=== PATIENT | male | born 1975 | race African-American/Black ===

== ENCOUNTER 2016-08-16 19:07 | Emergency (ER) | payer OTHER ==
[~2016-08-16] VITALS: Ht 172.7 cm; Wt 98.5 kg
[~2016-08-16 19:07] MED LIST: PREDNISONE20 MG PO; RISPERIDONE2 MG PO; ULTRAM50 MG PO; ZYPREXA10 MG PO
[2016-08-16 20:35] LABS: EOSINOPHIL (%) 0.4 % (0-5); HEMATOCRIT 40.4 % (38.0-50.0); IMMATURE GRANULOCYTE (%) 0.5 % (0.0-0.7); INSTRUMENT ABS NEUTROPHIL CT 5.5 K/uL; MCHC 34.2 G/DL (30.0-36.0); MCV 90.8 FL (86-99); MEAN PLAT.VOLUME 10.5 uM^3 (9.0-12.4); MONOCYTE (%) 6.5 % (3-12); MONOCYTE COUNT 0.5 K/uL (0-0.8); NEUTROPHIL (%) 67.5 % (45-76); NEUTROPHIL COUNT 5.5 K/uL (1.8-6.4); PLATELET COUNT 245 K/uL (156-360); RBC DIS.WIDTH-SD 43.2 % (39-53); RED BLOOD COUNT 4.45 M/uL (4.00-5.50); WHITE BLOOD COUNT 8.1 K/uL (4.1-10.2)
[2016-08-16 20:36] LABS: CHLORIDE 111 mEq/L (99-109); POTASSIUM 3.7 mEq/L (3.7-5.4); SODIUM 143 mEq/L (136-147)
[2016-08-16 20:39] LABS: GLUCOSE 104 mg/dL (70-99)
[2016-08-16 20:40] LABS: ANION GAP 10 MEQ/L (2-14)
[2016-08-16 20:41] LABS: TOTAL BILIRUBIN 0.3 mg/dL (0.0-1.0)
[2016-08-16 20:42] LABS: ALKALINE PHOSPHATASE 77 IU/L (3-129); GFR ESTIMATE (CALCULATED) > 59 mL/min/; SERUM ETHYL ALCOHOL 157 mg/dL
[2016-08-16 20:44] LABS: UREA NITROGEN (BUN) 17 mg/dL (9-23)
[2016-08-16 20:45] LABS: CREATINE KINASE 254 IU/L (1-294); TOTAL CK 254 IU/L (1-294)
[2016-08-16 20:54] LABS: CK-MB 1.3 ng/mL (0.0-4.9)
[2016-08-16 21:11] LABS: AMPHETAMINE NEGATIVE (500 ng/mL); BARBITURATES NEGATIVE (200 ng/mL); BENZODIAZEPINES NEGATIVE (150 ng/mL); COCAINE NEGATIVE (150 ng/mL); INTERNAL CONTROLS VALID? YES; METHADONE NEGATIVE (200 ng/mL); METHAMPHETAMINE NEGATIVE (500 ng/mL); OPIATES (MORPHINE) NEGATIVE (100 ng/mL); OXYCODONE NEGATIVE (100 ng/mL); PHENCYCLIDINE NEGATIVE (25 ng/mL); PROPOXYPHENE NEGATIVE (300 ng/mL); THC CANNABINOIDS NEGATIVE (50 ng/mL); TRICYCLIC ANTIDEPRESSANTS NEGATIVE (300 ng/mL)
[2016-08-16 21:35] VITALS: BP 111/68
== END 2016-08-16 21:36 | disposition home or self-care (01) ==
LOC: EME → EDBD 19:07 → EME 19:07
PROVIDERS: Emergency Medicine
DX: F10.129 Alcohol abuse with intoxication, unspecified (principal); F16.10 Hallucinogen abuse, uncomplicated; F17.200 Nicotine dependence, unspecified, uncomplicated; F20.9 Schizophrenia, unspecified
CPT/HCPCS: 80053; 82550; 82553; 85025; 99281; 99285; G0480; J7030

== ENCOUNTER 2016-08-18 10:08 | Inpatient (IN) | payer OTHER ==
[~2016-08-18] VITALS: Ht 172.7 cm; Wt 97.7 kg
[2016-08-18 10:42] LABS: HEMATOCRIT 45.1 % (38.0-50.0); MCHC 34.1 G/DL (30.0-36.0); MCV 90.7 FL (86-99); MEAN PLAT.VOLUME 10.6 uM^3 (9.0-12.4); PLATELET COUNT 251 K/uL (156-360); RBC DIS.WIDTH-CV 13.1 % (11.8-14.6); RBC DIS.WIDTH-SD 43.6 % (39-53); RED BLOOD COUNT 4.97 M/uL (4.00-5.50); WHITE BLOOD COUNT 9.7 K/uL (4.1-10.2)
[2016-08-18 10:53] LABS: CHLORIDE 106 mEq/L (99-109); POTASSIUM 3.6 mEq/L (3.7-5.4); SODIUM 140 mEq/L (136-147)
[2016-08-18 10:56] LABS: ANION GAP 12 MEQ/L (2-14)
[2016-08-18 10:58] LABS: SERUM ETHYL ALCOHOL < 10 mg/dL
[2016-08-18 10:59] LABS: GFR ESTIMATE (CALCULATED) > 59 mL/min/
[2016-08-18 11:00] LABS: UREA NITROGEN (BUN) 16 mg/dL (9-23)
[2016-08-18 11:03] LABS: GLUCOSE 204 mg/dL (70-99)
[2016-08-18 11:47] LABS: AMPHETAMINE NEGATIVE (500 ng/mL); BARBITURATES NEGATIVE (200 ng/mL); BENZODIAZEPINES NEGATIVE (150 ng/mL); COCAINE NEGATIVE (150 ng/mL); METHADONE NEGATIVE (200 ng/mL); METHAMPHETAMINE NEGATIVE (500 ng/mL); OPIATES (MORPHINE) NEGATIVE (100 ng/mL); OXYCODONE NEGATIVE (100 ng/mL); PHENCYCLIDINE NEGATIVE (25 ng/mL); THC CANNABINOIDS NEGATIVE (50 ng/mL); TRICYCLIC ANTIDEPRESSANTS NEGATIVE (300 ng/mL)
[2016-08-18 11:48] LABS: INTERNAL CONTROLS VALID? YES; PROPOXYPHENE NEGATIVE (300 ng/mL)
[2016-08-18] MEDS ORDERED: CITALOPRAM HBR10 MG PO (12:21)
[2016-08-18] MEDS ORDERED: CITALOPRAM HBR20 MG PO (12:21)
[2016-08-18] MEDS ORDERED: RISPERIDONE1 MG PO (12:22)
[2016-08-18 14:45] VITALS: BP 130/80
[2016-08-18 14:46] VITALS: BP 130/80
[2016-08-19 08:41] VITALS: BP 128/76
[2016-08-19 15:49] VITALS: BP 138/72
[2016-08-20 08:02] VITALS: BP 133/79
== END 2016-08-20 12:20 | disposition home or self-care (01) | DRG 885 ==
LOC: EME 10:08 → EDOF 13:23 → 1WEST 13:23
DX: F20.9 Schizophrenia, unspecified (principal); R45.851 Suicidal ideations; Z56.0 Unemployment, unspecified; F16.90 Hallucinogen use, unspecified, uncomplicated; F10.10 Alcohol abuse, uncomplicated; F12.10 Cannabis abuse, uncomplicated
CPT/HCPCS: 80048; 85027; 90839; 97150 GO; 97165 GO; 99281; 99285; G0480; Q0177

== ENCOUNTER 2016-10-13 17:11 | Emergency (ER) | payer OTHER ==
[~2016-10-13] VITALS: Ht 172.7 cm; Wt 93.3 kg
[~2016-10-13 17:11] MED LIST changes: +CITALOPRAM HBR10 MG PO; +CITALOPRAM HBR20 MG PO; +RISPERIDONE1 MG PO
[2016-10-13 17:47] LABS: EOSINOPHIL (%) 1.7 % (0-5); EOSINOPHIL COUNT 0.1 K/uL (0-0.3); HEMATOCRIT 42.7 % (38.0-50.0); IMMATURE GRANULOCYTE (%) 0.6 % (0.0-0.7); LYMPHOCYTE COUNT 2.3 K/uL (1.0-2.8); MCH 31.4 PG (29.0-34.0); MCHC 34.4 G/DL (30.0-36.0); MCV 91.2 FL (86-99); MEAN PLAT.VOLUME 10.5 uM^3 (9.0-12.4); MONOCYTE (%) 8.1 % (3-12); MONOCYTE COUNT 0.6 K/uL (0-0.8); NEUTROPHIL (%) 56.4 % (45-76); PLATELET COUNT 234 K/uL (156-360); RBC DIS.WIDTH-CV 13.5 % (11.8-14.6); RBC DIS.WIDTH-SD 45.4 % (39-53); RED BLOOD COUNT 4.68 M/uL (4.00-5.50); WHITE BLOOD COUNT 7.1 K/uL (4.1-10.2)
[2016-10-13 18:05] LABS: CHLORIDE 107 mEq/L (99-109); POTASSIUM 4.1 mEq/L (3.7-5.4); SODIUM 140 mEq/L (136-147)
[2016-10-13 18:08] LABS: GLUCOSE 136 mg/dL (70-99)
[2016-10-13 18:09] LABS: ANION GAP 11 MEQ/L (2-14)
[2016-10-13 18:10] LABS: TOTAL BILIRUBIN 0.5 mg/dL (0.0-1.0)
[2016-10-13 18:11] LABS: ALKALINE PHOSPHATASE 70 IU/L (3-129); GFR ESTIMATE (CALCULATED) > 59 mL/min/; SERUM ETHYL ALCOHOL < 10 mg/dL
[2016-10-13 18:13] LABS: UREA NITROGEN (BUN) 19 mg/dL (9-23)
[2016-10-13 18:14] LABS: CREATINE KINASE 188 IU/L (1-294); TOTAL CK 188 IU/L (1-294)
[2016-10-13 18:21] LABS: CK-MB 1.7 ng/mL (0.0-4.9); TROP-I INTERPRETATION NEGATIVE; TROPONIN-I < 0.01 ng/mL (0.0-0.30)
[2016-10-13 19:35] LABS: ADD MIUA? YES; BILIRUBIN NEGATIVE; BLOOD SMALL; COLOR YELLOW ((YELLOW)); GLUCOSE (STRIP) NEGATIVE; KETONES NEGATIVE; LEUKOCYTES NEGATIVE; NITRITE NEGATIVE; PROTEIN (STRIP) 100; UROBILINOGEN 0.2 MG/DL (0.2-1.0)
[2016-10-13 20:02] LABS: AMPHETAMINE NEGATIVE (500 ng/mL); BENZODIAZEPINES NEGATIVE (150 ng/mL); COCAINE NEGATIVE (150 ng/mL); METHADONE NEGATIVE (200 ng/mL); METHAMPHETAMINE NEGATIVE (500 ng/mL); OPIATES (MORPHINE) NEGATIVE (100 ng/mL); PHENCYCLIDINE NEGATIVE (25 ng/mL); THC CANNABINOIDS NEGATIVE (50 ng/mL); TRICYCLIC ANTIDEPRESSANTS NEGATIVE (300 ng/mL)
[2016-10-13 20:03] LABS: BARBITURATES NEGATIVE (200 ng/mL); INTERNAL CONTROLS VALID? YES; OXYCODONE NEGATIVE (100 ng/mL); PROPOXYPHENE NEGATIVE (300 ng/mL)
[2016-10-13 20:04] LABS: BACTERIA RARE /HPF; EPITHELIAL CELLS RARE /HPF; HYALINE CASTS 0-5 /LPF; MUCUS TRACE /LPF; RED BLOOD CELLS 0-5 /HPF (0-5); UCUL ADDED? NO
[2016-10-13 20:38] VITALS: BP 114/79
== END 2016-10-13 20:49 | disposition home or self-care (01) ==
LOC: EME 17:11
PROVIDERS: Emergency Medicine
DX: T40.991A Poisoning by other psychodysleptics [hallucinogens], accidental (unintentional), initial encounter (principal); R41.82 Altered mental status, unspecified; F16.10 Hallucinogen abuse, uncomplicated; I95.9 Hypotension, unspecified; F20.9 Schizophrenia, unspecified; F32.9 Major depressive disorder, single episode, unspecified; F17.200 Nicotine dependence, unspecified, uncomplicated
CPT/HCPCS: 70450; 80053; 81003; 82550; 82553; 84484; 85025; 93005; 99281; 99284; G0480; J7030

== ENCOUNTER 2017-08-15 13:23 | Emergency (ER) | payer OTHER ==
[~2017-08-15] VITALS: Ht 172.7 cm; Wt 117.2 kg
[2017-08-15] MEDS ORDERED: PYRIDIUM200 MG PO (13:58)
[2017-08-15] MEDS ORDERED: CIPRO500 MG PO (13:58)
[2017-08-15 14:05] LABS: APPEARANCE CLOUDY ((CLEAR)); BILIRUBIN NEGATIVE; BLOOD LARGE; GLUCOSE (STRIP) >=500; KETONES NEGATIVE; LEUKOCYTES NEGATIVE; NITRITE NEGATIVE; PROTEIN (STRIP) >=500; SPECIFIC GRAVITY 1.023 (1.000-1.030); UROBILINOGEN 0.2 MG/DL (0.2-1.0)
[2017-08-15 14:07] LABS: COLOR LT.RED ((YELLOW))
[2017-08-15 14:25] LABS: BACTERIA 1+ /HPF; EPITHELIAL CELLS NONE SEEN /HPF; MUCUS NONE SEEN /LPF; RED BLOOD CELLS 30-40 /HPF (0-5); UCUL ADDED? NO; WHITE BLOOD CELLS 0-5 /HPF (0-5)
[2017-08-15 14:43] VITALS: BP 131/99
== END 2017-08-15 14:44 | disposition home or self-care (01) ==
LOC: EME 13:23
DX: R31.9 Hematuria, unspecified (principal); F32.9 Major depressive disorder, single episode, unspecified; F41.9 Anxiety disorder, unspecified; F17.200 Nicotine dependence, unspecified, uncomplicated
CPT/HCPCS: 81003; 82948; 99281; 99283